=== PATIENT | male | born 1975 | race African-American/Black ===

== ENCOUNTER 2022-08-08 03:30 | Inpatient (IN) | payer BC ==
[2022-08-08] MEDS ORDERED: Ketorolac Tromethamine 30 MG/ML VIAL ONE (04:00)
[2022-08-08] MEDS ORDERED: Ondansetron PF 4 MG/2 ML Vial IVP PRN (04:52)
[2022-08-08] MEDS ORDERED: Ondansetron ODT 4 MG TAB PO PRN (04:52)
[2022-08-08] MEDS ORDERED: Communication Order-Pharmacy FS SCH (05:24)
[2022-08-08 05:42] LABS: CKMB 1.6 ng/mL (0-6.6)
[2022-08-08 06:18] VITALS: BMI 41.4
[2022-08-08] MEDS ORDERED: Nitroglycerin 0.4 MG TAB (25 Tab Bottle) SL PRN (06:27)
[2022-08-08] MEDS ORDERED: Morphine 2 MG/ML VIAL SLOW IVP PRN (06:27)
[2022-08-08] MEDS ORDERED: Heparin 10,000 UNITS/ 10 ML VIAL SLOW IVP SCH (07:45)
[2022-08-08] MEDS ORDERED: Heparin 25,000 units/D5W 500 ML IVPB SCH (07:45)
[2022-08-08 08:05] LABS: #Eosinphils 0.1 thou/uL (0.0-0.7); #Lymphocytes 1.2 thou/uL (1.20-3.40); #Monocytes 0.5 thou/uL (0.11-0.59); #Neutrophils 7.2 thou/uL (1.40-6.50); %Basophils 0.1 % (0.0-1.0); %Eosinophils 0.6 % (0.0-10.0); %Lymphocytes 13.8 % (21.0-51.0); %Monocytes 5.2 % (0.0-10.0); %Neutrophils 80.3 % (42.0-75.0); Hemoglobin 11.5 g/dL (14.0-18.0); Mean Corpuscular HGB CONC 32.7 g/dL (32.0-36.0); Mean Corpuscular Hemoglobin 27.9 pg (27.0-31.0); Mean Corpuscular Volume 85.3 fl (78.0-98.0); Mean Platelet Volume 9.7 fL (7.4-10.4); Platelet Count 207 10x3/uL (130-400); RBC Distribution Width 14.1 % (11.5-14.5); Red Blood Cell (RBC) Count 4.11 mill/uL (4.70-6.10)
[2022-08-08 08:33] LABS: Troponin I 0.063 ng/mL (< 0.028)
[2022-08-08] MEDS ORDERED: Nitroglycerin 50 MG/250 ML BOT 250 ML IVPB SCH (09:00)
[2022-08-08 09:03] LABS: ALT (SGPT) 18 U/L (8-55); AST (SGOT) 18 U/L (5-34); Albumin 3.7 g/dL (3.5-5.0); Alkaline Phosphatase 131 U/L (40-110); Anion Gap 18 mmol/L (10-20); BUN (Urea Nitrogen) 16 mg/dL (8.9-20.6); Bilirubin, Total 0.3 mg/dL (0.2-1.2); Calc. Creatinine Clearance 100 mL/min (70-130); Calcium 9.3 mg/dL (7.8-10.44); Carbon Dioxide 18 mmol/L (22-29); Chloride 105 mmol/L (98-107); Estimated GFR 47; Globulin 3.2 g/dL (2.4-3.5); Glucose 175 mg/dL (70-105); Potassium 4.3 mmol/L (3.5-5.1); Protein, Total 6.9 g/dL (6.0-8.3); Sodium 137 mmol/L (136-145)
[2022-08-08] MEDS ORDERED: HumaLOG 300 UNITS/3 ML VIAL SC PRN ×2 (09:11)
[2022-08-08] MEDS ORDERED: Dextrose 5% in Water 1,000 ML IV PRN (09:11)
[2022-08-08] MEDS ORDERED: Dextrose 50% Abboject 50 ML SYRINGE SLOW IVP PRN (09:11)
[2022-08-08 11:35] LABS: Troponin I 0.025 ng/mL (< 0.028)
[2022-08-08] MEDS ORDERED: Albuterol 200 PUFF (6.7GM INHALER) INH PRN (13:00)
[2022-08-08 14:59] LABS: Troponin I 0.029 ng/mL (< 0.028)
[2022-08-08] MEDS ORDERED: hydrALAZINE 20 MG/ML VIAL SLOW IVP PRN (19:29)
[2022-08-08] MEDS: Famotidine 20 MG TAB PO SCH (20:43)
[2022-08-08] MEDS: Carvedilol 6.25 MG TAB PO SCH (20:43)
[2022-08-08] MEDS: Torsemide 20 MG TAB PO SCH (20:44)
[2022-08-08] MEDS ORDERED: busPIRone HCl 10 MG TAB PO SCH (21:00)
[2022-08-08] MEDS ORDERED: Insulin Glargine 30 UNITS/0.3 ML VIAL SC SCH (21:00)
[2022-08-08] MEDS ORDERED: Atorvastatin Calcium 40 MG TAB PO SCH (21:00)
[2022-08-08] MEDS ORDERED: Fluticasone Propionate Nasal Spray 16 gm Bottle NASAL SCH (21:00)
[2022-08-08] MEDS ORDERED: Enoxaparin 120 MG/0.8 ML SYRINGE SC SCH ×2 (21:00)
[2022-08-09 04:28] LABS: #Eosinphils 0.1 thou/uL (0.0-0.7); #Lymphocytes 1.4 thou/uL (1.20-3.40); #Monocytes 0.6 thou/uL (0.11-0.59); #Neutrophils 7.3 thou/uL (1.40-6.50); %Basophils 0.2 % (0.0-1.0); %Lymphocytes 14.6 % (21.0-51.0); %Monocytes 6.1 % (0.0-10.0); %Neutrophils 78.1 % (42.0-75.0); Hemoglobin 11.3 g/dL (14.0-18.0); Mean Corpuscular HGB CONC 31.4 g/dL (32.0-36.0); Mean Corpuscular Hemoglobin 27.2 pg (27.0-31.0); Mean Corpuscular Volume 86.7 fl (78.0-98.0); Mean Platelet Volume 9.8 fL (7.4-10.4); Platelet Count 218 10x3/uL (130-400); Red Blood Cell (RBC) Count 4.14 mill/uL (4.70-6.10); White Blood Cell (WBC) Count 9.3 10x3/uL (4.8-10.8)
[2022-08-09 04:56] LABS: ALT (SGPT) 22 U/L (8-55); AST (SGOT) 17 U/L (5-34); Albumin 3.6 g/dL (3.5-5.0); Alkaline Phosphatase 131 U/L (40-110); Anion Gap 13 mmol/L (10-20); BUN (Urea Nitrogen) 16 mg/dL (8.9-20.6); Bilirubin, Total 0.4 mg/dL (0.2-1.2); Calc. Creatinine Clearance 111 mL/min (70-130); Calcium 9.3 mg/dL (7.8-10.44); Carbon Dioxide 27 mmol/L (22-29); Cardiac Risk 3.6 (Less than 4.5); Chloride 101 mmol/L (98-107); Cholesterol 120 mg/dl (< 200 Desired); Estimated GFR 53; Globulin 2.9 g/dL (2.4-3.5); Glucose 130 mg/dL (70-105); HDL Cholesterol 33 mg/dL (>60 Neg Risk); LDL Cholesterol, Calculated 61 mg/dL; Potassium 3.9 mmol/L (3.5-5.1); Protein, Total 6.5 g/dL (6.0-8.3); Sodium 137 mmol/L (136-145); Triglycerides 128 mg/dL (Less than 150)
[2022-08-09 08:02] LABS: Hemoglobin A1c 9.7 % (4.0-6.0)
[2022-08-09 08:07] VITALS: TEMP 97.8
[2022-08-09] MEDS: Famotidine 20 MG TAB PO SCH (08:26)
[2022-08-09] MEDS: Carvedilol 6.25 MG TAB PO SCH (08:26)
[2022-08-09 08:27] VITALS: BP 143/88
[2022-08-09] MEDS: Torsemide 20 MG TAB PO SCH (08:33)
[2022-08-09] MEDS ORDERED: Aspirin Chewable 81 MG TAB PO SCH (09:00)
[2022-08-09] MEDS ORDERED: Clopidogrel Bisulfate 75 MG TAB PO SCH (11:15)
[2022-08-10] MEDS ORDERED: Clopidogrel Bisulfate 75 MG TAB PO SCH (09:00)
== END 2022-08-09 13:38 | disposition home or self-care (01) | DRG 303 ==
LOC: ERS 03:30 → 2SW 04:23 → OBSVTOIN 08:56 → CCU 10:00
PROVIDERS: ADMIT Family Medicine; ATTEND Family Medicine
DX: I25.110 Atherosclerotic heart disease of native coronary artery with unstable angina pectoris (principal); I13.0 Hypertensive heart and chronic kidney disease with heart failure and stage 1 through stage 4 chronic kidney disease, or unspecified chronic kidney disease; I50.22 Chronic systolic (congestive) heart failure; N17.9 Acute kidney failure, unspecified; Z68.41 Body mass index [BMI] 40.0-44.9, adult; I42.9 Cardiomyopathy, unspecified; I25.10 Atherosclerotic heart disease of native coronary artery without angina pectoris; M10.9 Gout, unspecified; F41.9 Anxiety disorder, unspecified; E11.22 Type 2 diabetes mellitus with diabetic chronic kidney disease; I08.3 Combined rheumatic disorders of mitral, aortic and tricuspid valves; E66.01 Morbid (severe) obesity due to excess calories; N18.9 Chronic kidney disease, unspecified; Z88.5 Allergy status to narcotic agent; Z88.0 Allergy status to penicillin; Z88.8 Allergy status to other drugs, medicaments and biological substances; Z79.51 Long term (current) use of inhaled steroids; Z79.82 Long term (current) use of aspirin; Z79.4 Long term (current) use of insulin; Z79.899 Other long term (current) drug therapy; Z95.5 Presence of coronary angioplasty implant and graft; Z90.49 Acquired absence of other specified parts of digestive tract; Z98.890 Other specified postprocedural states; I25.2 Old myocardial infarction; Z95.810 Presence of automatic (implantable) cardiac defibrillator
CPT/HCPCS: 36415; 36416; 80053; 80061; 82553; 83036; 83880; 84443; 84484; 85025; 85730; 93005; 93306; 94760; 96374; G0378; J1644; J1815; J1885; J2272; J2405

== ENCOUNTER 2023-12-22 00:25 | Observation (INO) | payer BC ==
[2023-12-22] MEDS ORDERED: Nitroglycerin 0.4 MG TAB (25 Tab Bottle) SL PRN (02:17)
[2023-12-22] MEDS ORDERED: Ondansetron ODT 4 MG TAB PO PRN (02:22)
[2023-12-22] MEDS ORDERED: Ondansetron PF 4 MG/2 ML Vial IVP PRN (02:22)
[2023-12-22] MEDS ORDERED: Acetaminophen 325 MG TAB PO PRN (02:22)
[2023-12-22] MEDS ORDERED: Acetaminophen 650 MG Suppository PR PRN (02:22)
[2023-12-22] MEDS ORDERED: Nicotine 14 MG PATCH TD PRN (02:22)
[2023-12-22] MEDS ORDERED: Insulin Lispro 100 UNIT/ML 10 ML VIAL SC PRN ×2 (03:48)
[2023-12-22] MEDS ORDERED: Dextrose 5% in Water 1,000 ML IV PRN (03:48)
[2023-12-22] MEDS ORDERED: Dextrose 50% Abboject 50 ML SYRINGE SLOW IVP PRN (03:48)
[2023-12-22] MEDS ORDERED: Glucagon 1 MG/ML KIT IM PRN (03:48)
[2023-12-22] MEDS: Ranolazine ER 500 MG TAB PO SCH ×2 (04:16→08:36)
[2023-12-22 05:39] LABS: #Basophils Less than 0.03 10x3/uL (0.0-0.2); %Basophils 0.1 % (0.0-1.0); %Eosinophils 1.2 % (0.0-10.0); %Lymphocytes 22.8 % (21.0-51.0); %Monocytes 5.8 % (0.0-10.0); %Neutrophils 69.7 % (42.0-75.0); Hematocrit 37.2 % (42.0-52.0); Hemoglobin 12.2 g/dL (14.0-18.0); Mean Corpuscular HGB CONC 32.8 g/dL (32.0-36.0); Mean Corpuscular Hemoglobin 29.5 pg (27.0-31.0); Mean Corpuscular Volume 90.1 fL (78.0-98.0); Mean Platelet Volume 11.9 fL (7.4-10.4); Platelet Count 192 10x3/uL (130-400); RBC Distribution Width 15.8 % (11.5-14.5); Red Blood Cell (RBC) Count 4.13 mill/uL (4.70-6.10)
[2023-12-22 05:49] VITALS: BMI 40.8
[2023-12-22 05:53] LABS: ALT (SGPT) 19 U/L (8-55); AST (SGOT) 16 U/L (5-34); Albumin 3.5 g/dL (3.5-5.0); Alkaline Phosphatase 96 U/L (40-110); Anion Gap 16 mmol/L (10-20); BUN (Urea Nitrogen) 16 mg/dL (8.9-20.6); Bilirubin, Total 0.6 mg/dL (0.2-1.2); Calc. Creatinine Clearance 100 mL/min (70-130); Calcium 9.4 mg/dL (7.8-10.44); Carbon Dioxide 21 mmol/L (22-29); Chloride 105 mmol/L (98-107); Estimated GFR 48; Globulin 3.6 g/dL (2.4-3.5); Glucose 80 mg/dL (70-105); Potassium 3.7 mmol/L (3.5-5.1); Protein, Total 7.1 g/dL (6.0-8.3); Sodium 138 mmol/L (136-145)
[2023-12-22 05:55] LABS: Troponin I 0.074 ng/mL (< 0.028)
[2023-12-22] MEDS: Clopidogrel Bisulfate 75 MG TAB PO SCH (08:34)
[2023-12-22] MEDS: Isosorbide Dinitrate 5 MG TAB PO SCH (08:34)
[2023-12-22] MEDS: Torsemide 20 MG TAB PO SCH (08:35)
[2023-12-22] MEDS: Carvedilol 25 MG TAB PO SCH ×2 (08:37→22:11)
[2023-12-22] MEDS: Loratadine 10 MG TAB PO SCH (08:38)
[2023-12-22] MEDS: Aspirin Chewable 81 MG TAB PO SCH (08:40)
[2023-12-22] MEDS: Allopurinol 300 MG TAB PO SCH (08:45)
[2023-12-22] MEDS: Famotidine 20 MG TAB PO SCH (08:48)
[2023-12-22] MEDS: Famotidine/PF 20 mg/2ml Vial SLOW IVP SCH (08:49)
[2023-12-22 08:52] LABS: Troponin I 0.072 ng/mL (< 0.028)
[2023-12-22] MEDS ORDERED: Aspirin Chewable 81 MG TAB PO SCH (09:00)
[2023-12-22 10:17] LABS: Amphetamine Not Detected (NotDetected); Barbiturates Screen Not Detected (NotDetected); Benzodiazepine Screen Not Detected (NotDetected); Cocaine Metabolite Screen Not Detected (NotDetected); Methadone Not Detected (NotDetected); Methamphetamine Not Detected (NotDetected); Opiate Screen Not Detected (NotDetected); Oxycodone Screen Not Detected (NotDetected); Phencyclidine (PCP) Not Detected (NotDetected); THC/Cannabinoid Screen Not Detected (NotDetected); Tricyclic Screen Not Detected (NotDetected)
[2023-12-22] MEDS ORDERED: Enoxaparin 40 MG (0.4 mL) SYRINGE SC SCH ×2 (11:00→21:00)
[2023-12-22] MEDS: Enoxaparin 40 MG (0.4 mL) SYRINGE SC SCH ×2 (12:11→12:14)
[2023-12-22] MEDS: Enoxaparin 100 MG (1 mL) SYRINGE SC SCH (12:11)
[2023-12-22] MEDS ORDERED: Atorvastatin Calcium 40 MG TAB PO SCH (21:00)
[2023-12-22] MEDS ORDERED: Enoxaparin 100 MG (1 mL) SYRINGE SC SCH (21:00)
[2023-12-22] MEDS: Albuterol 200 PUFF (6.7GM INHALER) INH PRN (21:34)
[2023-12-22] MEDS: Atorvastatin Calcium 20 MG TAB PO SCH (21:55)
[2023-12-22] MEDS: Insulin Glargine 30 UNITS/0.3 ML VIAL SC SCH (21:57)
[2023-12-22] MEDS: busPIRone HCl 10 MG TAB PO SCH (22:54)
[2023-12-23] MEDS: Torsemide 20 MG TAB PO SCH (08:36)
[2023-12-23] MEDS: Carvedilol 25 MG TAB PO SCH (08:37)
[2023-12-23 15:26] VITALS: BP 143/86; TEMP 97.6
[2023-12-23] MEDS ORDERED: busPIRone HCl 10 MG TAB PO SCH (21:00)
== END 2023-12-23 20:15 | disposition home or self-care (01) ==
LOC: 2NO 01:21 → INTOOBSV 01:21
PROVIDERS: ADMIT Student in an Organized Health Care Education/Training Program; ATTEND Internal Medicine
DX: R07.89 Other chest pain (principal); I42.9 Cardiomyopathy, unspecified; I25.10 Atherosclerotic heart disease of native coronary artery without angina pectoris; I13.0 Hypertensive heart and chronic kidney disease with heart failure and stage 1 through stage 4 chronic kidney disease, or unspecified chronic kidney disease; N18.30 Chronic kidney disease, stage 3 unspecified; I50.20 Unspecified systolic (congestive) heart failure; E11.22 Type 2 diabetes mellitus with diabetic chronic kidney disease; N28.9 Disorder of kidney and ureter, unspecified; E66.01 Morbid (severe) obesity due to excess calories; M10.9 Gout, unspecified; E78.5 Hyperlipidemia, unspecified; Z88.0 Allergy status to penicillin; Z88.5 Allergy status to narcotic agent; Z68.39 Body mass index [BMI] 39.0-39.9, adult; Z95.810 Presence of automatic (implantable) cardiac defibrillator; Z90.49 Acquired absence of other specified parts of digestive tract; Z95.1 Presence of aortocoronary bypass graft; Z79.82 Long term (current) use of aspirin; Z79.899 Other long term (current) drug therapy
CPT/HCPCS: 36415; 36416; 80053; 80306; 83036; 83880; 84484; 85025; 96372; G0378; J1650

== ENCOUNTER 2025-03-28 01:50 | Emergency (ER) | payer BC | END 2025-03-28 03:53 | disposition home or self-care (01) | LOC: ERS 01:50 | DX: R10.A1 Flank pain, right side (principal); I25.2 Old myocardial infarction; E11.9 Type 2 diabetes mellitus without complications; I10 Essential (primary) hypertension; F17.220 Nicotine dependence, chewing tobacco, uncomplicated | CPT/HCPCS: 76870; 93976; 99284 ==